=== PATIENT | female | born 1980 | race African-American/Black ===

== ENCOUNTER 2018-04-06 09:05 | Emergency (ER) | payer OTHER ==
--- NOTE | 2018-04-06 11:09 | ED GI/GU/ABDOMINAL COMPLAINT ---
History of Present Illness General Chief Complaint: Abdominal Pain/Flank Pain Stated Complaint: ABDOMINAL PAIN Source: patient Exam Limitations: no limitations Vital Signs & Intake/Output Vital Signs & Intake/Output Vital Signs Date Time Temp Pulse Resp B/P B/P Pulse O2 O2 Flow FiO2 Mean Ox Delivery Rate 04/06 1411 90 18 103/56 98 Room Air 04/06 1236 Room Air 04/06 1235 96 18 119/77 98 Room Air 04/06 0909 97.0 100 18 122/76 98 Room Air Allergies Coded Allergies: No Known Allergies (04/06/18) Reconcile Medications No Known Home Medications Triage Note: 37F REPORTS SHE MISSED HER PERIOD. LAST MENSES ? 02/28. GIVEN URINE CUP FOR SAMPLE Triage Nurses Notes Reviewed? yes ? y Is pt currently ? No Onset: Gradual Duration: day(s): Timing: recent history HPI: Pt is a 37 y/o F who presents to ED complaining of missed period. Pt states her LMP was 02/28/2018. Over the past several days pt noticed some abdominal pain. Pain is located suprapubically described as mild cramping. Pt states she has been trying for with her and has had 2 failed IVF procedures. Last procedure was May of 2018. Pt denies any vaginal bleeding or discharge, N/V/D/C, dysuria, polyuria. (Debo Pyle) Past History Travel History Traveled to [place] past 21 day No Medical History Any Pertinent Medical History? none Surgical History Surgical History: non-contributory Psychosocial History What is your primary language Yi Tobacco Use: Refused to answer Family History Hx Contributory? No (Debo Pyle) Review of Systems Review of Systems Constitutional: Denies: see HPI. EENTM: Reports: no symptoms. Respiratory: Denies: see HPI. Cardiovascular: Denies: see HPI. GI: Reports: see HPI. Genitourinary: Reports: see HPI. Musculoskeletal: Reports: no symptoms. Skin: Reports: no symptoms. Neurological/Psychological: Reports: no symptoms. Hematologic/Endocrine: Reports: no symptoms. Immunologic/Allergic: Reports: no symptoms. All Other Systems: Reviewed and Negative (Debo Pyle) Physical Exam Physical Exam General Appearance: well developed/nourished, no apparent distress, alert, awake Head: atraumatic, normal appearance Eyes: Bilateral: normal appearance. Ears, Nose, Throat, Mouth: hearing grossly normal Neck: normal inspection, supple, full range of motion Respiratory: normal breath sounds, no respiratory distress, lungs clear Cardiovascular: regular rate/rhythm Gastrointestinal: normal bowel sounds, soft, no organomegaly, MILD Tenderness to palpation of LLQ, no gaurding Back: normal inspection, normal range of motion Extremities: normal range of motion Neurologic/Psych: awake, alert, oriented x 3 Skin: intact, normal color, warm/dry Core Measures ACS in differential dx? No Sepsis Present: No Sepsis Focused Exam Completed? No (Gloria IRAHETA,Debo Johnson) Progress Differential Diagnosis: bowel obstruction, diverticulitis, ectopic , hernia, intrauterine , ovarian cyst, threatened AB, UTI/pyelo Plan of Care: Orders Procedure Date/time Status HUMAN BETA HCG TITRE 04/06 954 Complete COMPREHENSIVE METABOLIC PANEL 04/06 954 Complete CBC WITHOUT DIFFERENTIAL 04/06 954 Complete URINE 04/06 909 Complete URINALYSIS 04/06 909 Complete Laboratory Tests 04/06/18 1250: Anion Gap 14, Estimated GFR > 60, BUN/Creatinine Ratio 20.0, Glucose 79, Calcium 9.7, Total Bilirubin 0.5, AST 19, ALT 15, Alkaline Phosphatase 60, Total Protein 9.0 H, Albumin 4.8, Globulin 4.2, Albumin/Globulin Ratio 1.1, Beta HCG, Quant > 27262.0, CBC w Diff MAN DIFF ORDERED, RBC 4.95, MCV 71.4 L, MCH 22.7 L, MCHC 31.8 L, RDW 15.3 H, MPV 8.3, Gran % 39.8 L, Lymphocytes % 49.9, Monocytes % 9.5 H, Eosinophils % 0.8, Basophils % 0, Absolute Granulocytes 1.9, Segmented Neutrophils 40 L, Absolute Lymphocytes 2.4, Lymphocytes 58 H, Monocytes 2, Absolute Monocytes 0.5, Absolute Eosinophils 0, Absolute Basophils 0, Platelet Estimate VERIFIED BY SMEAR, Normocytic RBCs VERIFIED, Normochromic RBCs VERIFIED 04/06/18 0920: Urinalysis LIGHT H, Urine Color YEL, Urine Clarity HAZY H, Urine pH 6.0, Ur Specific [place] 1.025, Urine Protein NEG, Urine Ketones NEG, Urine Nitrite NEG, Urine Bilirubin NEG, Urine Urobilinogen 0.2, Ur Leukocyte Esterase NEG, Ur Microscopic SEDIMENT EXAMINED, Urine RBC RARE, Urine WBC 1-3 H, Ur Epithelial Cells MANY H, Urine Bacteria MOD H, Urine Mucus FEW, Urine Hemoglobin NEG, Urine Glucose NEG, Urine Test POSITIVE 04/06/18 0909: Lipase Cancelled, CBC w Diff Cancelled, WBC Cancelled, RBC Cancelled, Hgb Cancelled, Hct Cancelled, MCV Cancelled, MCH Cancelled, MCHC Cancelled, RDW Cancelled, Plt Count Cancelled, MPV Cancelled Patient's ultrasound shows IUP however likely very early . Patient's labs are stable. She has no vaginal bleeding. Patient is sitting in stretcher in no acute distress, nontoxic appearing. She will follow-up with [facility]. Patient agrees with plan of care. Diagnostic Imaging: Viewed by Me: Ultrasound. Discussed w/RAD: Ultrasound. Radiology Impression: PATIENT: ZAHIRA HOWARD PRESENT AGE: 37 PATIENT ACCOUNT NO: [id number] : 80 LOCATION: [facility] ORDERING PHYSICIAN: Leon IRAHETA SERVICE DATE: 04/06/18 EXAM TYPE: US - US TRANSVAG EXAMINATION: ULTRASOUND FIRST TRIMESTER CLINICAL INFORMATION: Positive test with lower abdominal pain. COMPARISON: None. TECHNIQUE: Transabdominal and transvaginal imaging of the pelvis was performed. Transvaginal imaging was performed for further evaluation of the endometrium and adnexa. Color Doppler and spectral waveform analysis was performed. FINDINGS: A fibroid gravid uterus is identified. Multiple uterine fibroids are seen, the largest of which measures 1.9 x 2.1 x 1.7 cm. A single gestational sac containing a well-defined yolk sac is identified within the endometrial canal with a mean sac diameter of 10.2 mm corresponding to 5 weeks 5 days. This is concordant with the age by dates of 5 weeks 3 days for an LAXMI of 12/02/2018. A pole is not yet identified. Both ovaries are of normal size and echogenicity. The right measures 4. x 1.7 x 2.8 cm. The right ovary contains an oval hypoechoic mass measuring 2.6 x 1.9 x 1.5 cm. The left ovary measures 3.7 x 1.9 x 2.0 cm. Intact arterial and venous waveforms are seen. There is moderate pelvic free fluid. IMPRESSION: 1. Single intrauterine gestational sac containing a yolk sac. No pole is tilted able to be seen, however this may be due to the early phase of gestation. Correlation with beta hCG levels and clinical status recommended with low threshold for interval follow-up imaging as based upon clinical assessment. 2. Hypoechoic mass associated with the right ovary may be the corpus luteal cyst although no cystic central region is identified. 3. Fibroid uterus. DICTATED BY: Aimee Potts MD DATE/TIME DICTATED:04/06/181244 RECEIVING TELLER:YVES DATE/TIME TRANSCRIBED:04/06/181244 CONFIDENTIAL, DO NOT COPY WITHOUT APPROPRIATE AUTHORIZATION. <Electronically signed in Other Vendor System> SIGNED BY: Aimee Potts MD 04/06/18 8403 Initial ED EKG: none (Debo Pyle) Departure Departure Disposition: HOME OR SELF CARE Condition: Stable Clinical Impression Primary Impression: test positive Referrals: Unknown (PCP/Family) Additional Instructions: Given a referral to an [facility] to follow up with. Call the office later today to schedule your appointment. Return if any worsening symptoms including increasing abdominal pain, vaginal bleeding, fevers. Please note that there might be incidental findings in your evaluation that are unrelated to the current emergency department visit. Please notify your primary care doctor about this emergency department visit in order to obtain and review all of the testing performed so that these incidental findings can be monitored as needed. If you had an x-ray performed, please understand that some fractures may not be seen on the initial set of x-rays. If your symptoms persist you might need a repeat set of x-rays to check for such a fracture. If you had a laceration evaluated, please understand that foreign bodies such as glass or wood may not be visible to the naked eye or on plain x-rays. If the wound becomes red, swollen, increasingly more painful or if there is any drainage from the wound, please have it reevaluated by a physician for the possibility of a retained foreign body. If you're unable to follow up as outlined in the discharge instructions please return to the emergency department. Thank you for choosing the [facility] Emergency Department for your care. It was a pleasure to serve you today. Departure Forms: Customer Survey General Discharge Information Prescriptions: Current Visit Scripts No Known Home Medications ([place] PA,Debo Elizabeth) PA/CAR REPAIRER HELPER Co-Sign Statement Statement: ED Attending supervision documentation- [] I saw and evaluated the patient. I have also reviewed all the pertinent lab results and diagnostic results. I agree with the findings and the plan of care as documented in the PA's/CAR REPAIRER HELPER's documentation. [X] I have reviewed the ED Record and agree with the PA's/CAR REPAIRER HELPER's documentation. [] Additions or exceptions (if any) to the PAs/CAR REPAIRER HELPER's note and plan are summarized below: [] (Itzel REYES,Bill Gutierrez)
--- NOTE | 2018-04-06 12:56 | ULTRASOUND REPORT ---
EXAMINATION: ULTRASOUND FIRST TRIMESTER CLINICAL INFORMATION: Positive test with lower abdominal pain. COMPARISON: None. TECHNIQUE: Transabdominal and transvaginal imaging of the pelvis was performed. Transvaginal imaging was performed for further evaluation of the endometrium and adnexa. Color Doppler and spectral waveform analysis was performed. FINDINGS: A fibroid gravid uterus is identified. Multiple uterine fibroids are seen, the largest of which measures 1.9 x 2.1 x 1.7 cm. A single gestational sac containing a well-defined yolk sac is identified within the endometrial canal with a mean sac diameter of 10.2 mm corresponding to 5 weeks 5 days. This is concordant with the age by dates of 5 weeks 3 days for an LAXMI of 12/02/2018. A pole is not yet identified. Both ovaries are of normal size and echogenicity. The right measures 4. x 1.7 x 2.8 cm. The right ovary contains an oval hypoechoic mass measuring 2.6 x 1.9 x 1.5 cm. The left ovary measures 3.7 x 1.9 x 2.0 cm. Intact arterial and venous waveforms are seen. There is moderate pelvic free fluid. IMPRESSION: 1. Single intrauterine gestational sac containing a yolk sac. No pole is tilted able to be seen, however this may be due to the early phase of gestation. Correlation with beta hCG levels and clinical status recommended with low threshold for interval follow-up imaging as based upon clinical assessment. 2. Hypoechoic mass associated with the right ovary may be the corpus luteal cyst although no cystic central region is identified. 3. Fibroid uterus.
[2018-04-06 13:14] LABS: ABSOLUTE BASOPHIL COUNT 0 /CUMM (0.0-0.2); ABSOLUTE EOSINOPHIL COUNT 0 /CUMM (0.0-0.7); ABSOLUTE GRANULOCYTE CT 1.9 /CUMM (1.4-6.5); ABSOLUTE LYMPH COUNT 2.4 /CUMM (1.2-3.4); ABSOLUTE MONOCYTE COUNT 0.5 /CUMM (0.10-0.60); BASOPHIL % 0 % (0.0-2.0); EOSINOPHIL % 0.8 % (0-5); GRANULOCYTE % 39.8 % (42.2-75.2); HEMATOCRIT 35.4 % (37-47); MEAN CORPUSCULAR HGB 22.7 PG (27.0-31.0); MEAN CORPUSCULAR HGB CONC 31.8 G/DL (33.0-37.0); MEAN CORPUSCULAR VOLUME 71.4 FL (81.0-99.0); MEAN PLATELET VOLUME 8.3 FL (7.4-10.4); PLATELET COUNT 328 /CUMM (130-400); RBC DISTRIBUTION WIDTH 15.3 % (11.5-14.5); RED BLOOD CELL CT 4.95 /CUMM (4.20-5.40); WHITE BLOOD CELL COUNT 4.9 /CUMM (4.8-10.8)
== END 2018-04-06 14:31 ==
LOC: ERH 09:05
PROVIDERS: Physician Assistant Medical
DX: Z32.01 Encounter for pregnancy test, result positive (principal)
CPT/HCPCS: 76817; 81001; 81025